=== PATIENT | male | born 1940 | race Two or more races ===

== ENCOUNTER 2024-10-05 07:30 | Inpatient (IN) | payer OTHER ==
[~2024-10-05] VITALS: Ht 170.2 cm; Wt 68.0 kg
[2024-10-05 07:33] LABS: URINE APPEARANCE Clear; URINE BILIRRUBIN Negative (NEGATIVE); URINE BLOOD Negative; URINE COLOR Yellow; URINE GLUCOSE Negative (NEGATIVE); URINE KETONE Negative (NEGATIVE); URINE LEUKOCYTE Negative; URINE NITRATE Negative; URINE PROTEIN Negative (NEGATIVE); URINE UROBILINOGEN 1.0 E.U./dl
[2024-10-05] MEDS ORDERED: METFORMIN HCL500 M3 PO (07:34)
[2024-10-05] MEDS ORDERED: PLAVIX75 MG PO (07:35)
[2024-10-05] MEDS ORDERED: LIPITOR20 MG PO (07:35)
[2024-10-05] MEDS ORDERED: CARVEDILOL ER20 MG PO (07:35)
[2024-10-05 07:36] LABS: URINE BACTERIA 8.5 uL (0.0-1933); URINE EPITHELIAL CELLS 1.4 uL (0.0-38.8); URINE RBC 6.0 uL (0.0-20.8); URINE WBC 2.5 uL (0.0-23.2)
[2024-10-05] MEDS ORDERED: ALTACE5 MG PO (07:36)
[2024-10-05] MEDS ORDERED: CARVEDILOL3.125 MG (07:36)
[2024-10-05 07:43] VITALS: BP 150/71
[2024-10-05 07:52] LABS: COVID-19 AG NEGATIVE (NEGATIVE)
[2024-10-05 07:53] LABS: URINE CAST 0.00 uL (0.0-1.40)
[2024-10-05 08:08] LABS: INR 1.0
[2024-10-05 08:16] LABS: ALT/SGPT 21.0 U/L (12-78); AST/SGOT 17.0 U/L (15-37); BILIRUBIN TOTAL 0.58 mg/dL (0.3-1.2); BUN CREA RATIO 20.0 (7.0-25.0); CHOL HDL RATIO 3.3 (0-5.0); CREATININE SERUM 0.81 mg/dL (0.70-1.30); GFR 91.46; GLOBULINA 3.3 G/DL (2.4-3.5); GLUCOSE FASTING 114.0 mg/dL (65-100); HDL 43.0 mg/dl (40-60); LDL 62.0 mg/dl (0-130); OSMOLALITY SERUM 285.0 MOSM/KG (275-295); VLDL 36.0 (0-39)
[2024-10-05 08:40] LABS: BASO % 0.8 % (0.1-1.2); EOS # 0.19 (0.04-0.54); EOS % 2.9 % (0.7-7.0); LYMPH # 1.60 (1.18-3.74); LYMPH % 24.1 % (19.3-53.1); MEAN PLATELET VOLUME 10.00 fl (9.4-12.4); MONO # 0.76 (0.24-0.82); MONO % 11.5 % (4.7-12.5); NEUT # 4.02 (1.56-6.13); NEUT % 60.5 % (34.0-71.1); RED CELL DISTRIBUTION WIDTH 13.7 % (11.6-14.4)
[2024-10-05 10:05] LABS: RH NEGATIVE
[2024-10-13] MEDS ORDERED: TRANEXAMIC ACID 100MG/1ML (1000MG) AMPUL IV ONE ×2 (08:30)
[2024-10-13] MEDS ORDERED: BUPIVACAINE HCL 30 ML VIAL IJ ONE (08:30)
[2024-10-13] MEDS ORDERED: KETOROLAC TROMETHAMINE 60 MG VIAL IM ONE (08:30)
[2024-10-13] MEDS ORDERED: POVIDONE-IODINE 118 ML BOTT TOP ONE (08:30)
[2024-10-13] MEDS ORDERED: MORPHINE SULFATE 4 MG/ML CARTRIDGE IV ONE (08:30)
[2024-10-13] MEDS ORDERED: LIDOCAINE HCL 1%/EPINEPHRINE 20ML VIAL IJ ONE (08:30)
[2024-10-13] MEDS ORDERED: CEFAZOLIN SODIUM 1,000 MG VIAL IV ONE (08:30)
[2024-10-13] MEDS ORDERED: MORPHINE SULFATE 4 MG/ML CARTRIDGE IV PRN (10:00)
[2024-10-13] MEDS ORDERED: OxyCODONE HCL 5 MG TABLET (ROXICODONE) PO PRN (10:00)
[2024-10-13] MEDS ORDERED: SODIUM CHLORIDE 0.45 % 1,000 ML IV SCH (10:00)
[2024-10-13] MEDS ORDERED: ONDANSETRON HCL 2 MG/ML VIAL IV PRN (10:00)
[2024-10-13] MEDS ORDERED: ACETAMINOPHEN 500 MG GEL..CAP PO SCH (12:00)
[2024-10-13] MEDS ORDERED: CEFAZOLIN SODIUM 1,000 MG VIAL IV SCH (17:00)
[2024-10-13] MEDS ORDERED: GABAPENTIN 300 MG CAPSULE PO SCH (17:00)
[2024-10-13 17:24] VITALS: BP 139/73; O2SAT 95
[2024-10-13] MEDS ORDERED: INSULIN LISPRO 1,000 UNIT/10 ML UNITS SUBCUTANEO PRN (19:30)
[2024-10-13] MEDS ORDERED: DEXTROSE 50 % IN WATER 0.5 G/ML VIAL IV PRN (19:30)
[2024-10-14 00:42] VITALS: BP 137/75; O2SAT 95
[2024-10-14 08:00] VITALS: BP 148/80; O2SAT 95
[2024-10-14] MEDS ORDERED: ELIQUIS2.5 MG PO (08:00)
[2024-10-14] MEDS ORDERED: PERCOCET 5-3251 EACH PO (08:00)
[2024-10-14] MEDS ORDERED: DUI500 PO (08:00)
[2024-10-14 08:33] LABS: BASO % 0.5 % (0.1-1.2); EOS # 0.27 (0.04-0.54); EOS % 2.5 % (0.7-7.0); LYMPH # 1.22 (1.18-3.74); LYMPH % 11.2 % (19.3-53.1); MEAN PLATELET VOLUME 10.30 fl (9.4-12.4); MONO # 1.55 (0.24-0.82); NEUT # 7.81 (1.56-6.13); NEUT % 71.3 % (34.0-71.1); RED CELL DISTRIBUTION WIDTH 13.6 % (11.6-14.4)
[2024-10-14 08:42] LABS: MONO % 14.2 % (4.7-12.5)
[2024-10-14] MEDS ORDERED: RAMIPRIL 5 MG CAPSULE PO SCH (09:00)
[2024-10-14] MEDS ORDERED: APIXABAN 2.5 MG TABLET PO SCH (09:00)
[2024-10-14] MEDS ORDERED: IRON FUM,PS/FOLIC/BCOMP,C NO.9 1 CAP CAPSULE PO SCH (09:00)
[2024-10-14] MEDS ORDERED: CARVEDILOL 3.125 MG TABLET PO SCH (09:00)
[2024-10-14] MEDS ORDERED: SENNOSIDES 1 TAB TABLET PO SCH (09:00)
[2024-10-14 11:20] LABS: BASO % 0.5 % (0.1-1.2); EOS # 0.20 (0.04-0.54); EOS % 1.9 % (0.7-7.0); LYMPH # 0.86 (1.18-3.74); LYMPH % 8.0 % (19.3-53.1); MEAN PLATELET VOLUME 10.20 fl (9.4-12.4); MONO # 1.40 (0.24-0.82); NEUT # 8.10 (1.56-6.13); NEUT % 75.7 % (34.0-71.1); RED CELL DISTRIBUTION WIDTH 13.7 % (11.6-14.4)
[2024-10-14 11:23] LABS: COVID-19 AG NEGATIVE (NEGATIVE)
[2024-10-14 11:30] LABS: MONO % 13.1 % (4.7-12.5)
[2024-10-14] MEDS ORDERED: SOD FERRIC GLUC COMPLX/SUCROSE 62.5 MG/5 ML AMPUL IV SCH (12:00)
[2024-10-14] MEDS ORDERED: Cyanocobalamin/Mecobalamin 1 TAB.SL SL NR (12:45)
[2024-10-14 16:00] VITALS: BP 108/67; BP 157/75; O2SAT 95; O2SAT 96
[2024-10-15 01:05] VITALS: BP 140/74; O2SAT 99
[2024-10-15 08:00] VITALS: BP 160/77; O2SAT 97
[2024-10-15 08:01] LABS: BASO % 0.6 % (0.1-1.2); EOS # 0.36 (0.04-0.54); EOS % 2.9 % (0.7-7.0); LYMPH # 1.42 (1.18-3.74); LYMPH % 11.3 % (19.3-53.1); MEAN PLATELET VOLUME 10.70 fl (9.4-12.4); MONO # 1.96 (0.24-0.82); NEUT # 8.74 (1.56-6.13); NEUT % 69.3 % (34.0-71.1); RED CELL DISTRIBUTION WIDTH 13.8 % (11.6-14.4)
[2024-10-15 08:05] LABS: MONO % 15.6 % (4.7-12.5)
[2024-10-15] MEDS ORDERED: Cyanocobalamin/Mecobalamin 1 TAB.SL SL SCH (09:00)
[2024-10-15] MEDS ORDERED: IRON FUM,PS/FOLIC ACID/VITC/B3 1 CAP CAPSULE PO SCH (09:00)
[2024-10-15 12:00] VITALS: BP 160/80; O2SAT 96
[2024-10-15 16:00] VITALS: BP 156/67; O2SAT 94
== END 2024-10-15 18:07 | DRG 470 ==
LOC: O/R 10-13 05:30 → SURH 10-13 05:30
PROVIDERS: ADMIT Orthopaedic Surgery; ATTEND Orthopaedic Surgery
PROC: 0SUD07Z Supplement Left Knee Joint with Autologous Tissue Substitute, Open Approach (ICD-10-PCS; 2024-10-13)
PROC: 0SRD0J9 Replacement of Left Knee Joint with Synthetic Substitute, Cemented, Open Approach (ICD-10-PCS; principal; 2024-10-13 13:00)
DX: M17.12 Unilateral primary osteoarthritis, left knee (principal); D62 Acute posthemorrhagic anemia; I25.10 Atherosclerotic heart disease of native coronary artery without angina pectoris; I11.9 Hypertensive heart disease without heart failure